=== PATIENT | male | born 1965 | race Caucasian/White ===

== ENCOUNTER 2023-06-20 09:57 | Emergency (ER) | payer MEDICARE ==
[2023-06-20] MEDS ORDERED: Sodium Chloride 0.9% 10 ML Syringe FLUSH PRN (10:38)
[2023-06-20] MEDS ORDERED: Pantoprazole 40 MG Vial IVPUSH ONE (10:39)
[2023-06-20 10:45] LABS: BASOPHILS ABSOLUTE AUTO 0.1 K/mm3 (0.0-0.2); EOSINOPHILS ABSOLUTE AUTO 0.1 K/mm3 (0.0-0.4); EOSINOPHILS PERCENT AUTO 1.4 % (0.0-6.0); HEMOGLOBIN 16.2 gm/dl (14.0-18.0); IMMATURE GRAN ABSOLUTE AUTO 0.03 K/mm3 (0.00-0.05); IMMATURE GRAN PERCENT AUTO 0.5 % (0.0-0.4); LYMPHOCYTES ABSOLUTE AUTO 1.5 K/mm3 (1.0-4.8); LYMPHOCYTES PERCENT AUTO 23.5 % (24.0-44.0); MEAN CORPUSCULAR HEMOGLOBIN 34.7 pg (28.0-32.0); MEAN CORPUSCULAR HGB CONC 36.8 g/dl (32.0-36.0); MEAN CORPUSCULAR VOLUME 94.2 fl (83.0-99.0); MEAN PLATELET VOLUME 8.5 fl (9.4-12.4); MONOCYTES ABSOLUTE AUTO 0.7 K/mm3 (0.0-0.8); MONOCYTES PERCENT AUTO 10.6 % (0.0-8.0); PLATELET COUNT,PLT 240 K/mm3 (150-400); RED BLOOD CELL COUNT 4.67 M/mm3 (4.52-5.90); WHITE BLOOD CELL COUNT,WBC 6.31 K/mm3 (3.9-11.3)
[2023-06-20] MEDS ORDERED: Sodium Chloride 0.9% 1,000 ML IV SCH (10:45)
[2023-06-20 10:57] LABS: A/G RATIO 0.9 (1-2); ALBUMIN 3.8 g/dl (3.4-5.0); ANION GAP 11.7 (5-15); BILIRUBIN TOTAL 1.3 mg/dL (0.2-1.0); BUN/CREATININE RATIO 9.5 (14-18); CALCIUM 9.2 mg/dL (8.5-10.1); CREATININE 1.9 mg/dL (0.7-1.3); EST CRCL DRUG DOSING (CG) 43.41 mL/min; MAGNESIUM 2.2 mg/dL (1.8-2.4); POTASSIUM,K 3.7 mEq/L (3.5-5.1); PROTEIN TOTAL,TP 7.9 g/dl (6.4-8.2)
== END 2023-06-20 12:44 | disposition home or self-care (01) ==
LOC: JD.ED 09:57
DX: K29.00 Acute gastritis without bleeding (principal); E86.0 Dehydration; N28.9 Disorder of kidney and ureter, unspecified; F17.210 Nicotine dependence, cigarettes, uncomplicated; I10 Essential (primary) hypertension; Z79.899 Other long term (current) drug therapy
CPT/HCPCS: 36415; 71045; 80053; 83735; 84484; 85025; 93005; 96361; 96374; 99284; C9113; J7030; 93010

== ENCOUNTER 2023-10-01 22:19 | Emergency (ER) | payer MEDICAID | END 2023-10-01 23:03 | LOC: JD.ED 22:19 | DX: L85.3 Xerosis cutis (principal); F10.920 Alcohol use, unspecified with intoxication, uncomplicated; I10 Essential (primary) hypertension; Z79.899 Other long term (current) drug therapy | CPT/HCPCS: 99283 ==

== ENCOUNTER 2024-11-22 01:44 | Emergency (ER) | payer MEDICARE ==
[2024-11-22] MEDS: Acetaminophen/oxyCODONE 325-5 MG Tab PO ONE (02:27)
[2024-11-22] MEDS: amLODIPine 10 MG Tab PO SCH (02:28)
[2024-11-22] MEDS: Ondansetron 4 MG Tab.DIS PO ONE (02:28)
[2024-11-22] MEDS ORDERED: amLODIPine 10 MG Tab PO SCH (21:00)
== END 2024-11-22 03:58 | disposition home or self-care (01) ==
LOC: JD.ED 01:44
DX: G44.209 Tension-type headache, unspecified, not intractable (principal); I10 Essential (primary) hypertension
CPT/HCPCS: 99283; A9270